=== PATIENT | male | born 1995 | race Caucasian/White ===

== ENCOUNTER 2017-09-25 11:51 | Emergency (ER) | payer MEDICAID ==
[2017-09-25 12:06] VITALS: BP 126/72
--- NOTE | 2017-09-25 12:49 | ER Document Report ---
HPI - HPI Pain Level: 3 Notes: Patient is a 22-year-old male with no significant past medical history who presents to the ED complaining of lymphadenopathy on the left side of his neck 1 week. Patient states that he has not noticed any other swelling anywhere else. Patient states that he did have nasal congestion and discharge for the first couple days which have since resolved. Patient states that he has otherwise felt well and is eating and drinking without any difficulties. He is urinating normally having normal bowel movements. He has not noticed any changes in his weight. He denies any drug allergies. He does not have any cats in the household. Patient states that the lymph nodes are painful to the touch. No other concerns or complaints. Denies any headache, fever, head injury, trouble swallowing/breathing, hoarseness, drooling, ear pain, URI, sore throat, chest pain, palpitations, syncope, cough, shortness of breath, wheeze, dyspnea, abdominal pain, nausea/vomiting/diarrhea, urinary retention, dysuria, hematuria, loss of control of bowel or bladder, muscle paralysis/weakness, or rash. Pt also has had some tingling to the left lateral 5th digit/hand. 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 He also gets occ tingling to the hand itself. - ROS Systems Reviewed and Negative: Yes All other systems reviewed and negative - REPRODUCTIVE Reproductive: DENIES: : Past Medical History - Social History Smoking Status: Never Smoker Family History: Reviewed & Not Pertinent Pulmonary Medical History: Reports: Hx Asthma, Hx Bronchitis Psychiatric Medical History: Reports: Hx Attention Deficit Hyperactivity Disorder - Immunizations Immunizations up to date: Yes Hx Diphtheria, Pertussis, Tetanus Vaccination: Yes Vertical Provider Document - CONSTITUTIONAL Agree With Documented VS: Yes Notes: PHYSICAL EXAMINATION: GENERAL: Well-appearing, well-nourished and in no acute distress. A&Ox4. Answers questions appropriately. Moves comfortably w/o notable distress HEAD: Atraumatic, normocephalic. EYES: Pupils equal round and reactive to light, extraocular movements intact, sclera anicteric, conjunctiva are normal. ENT: EAC clear b/l. TM's intact b/l without erythema, fluid, or perforation. Nares patent and with clear discharge. oropharynx no erythema without exudates. No tonsilar hypertrophy without erythema or exudate. No palatine shift. Uvula midline. No tongue protrusion. No drooling, hoarseness, or airway compromise. Moist mucous membranes. No sinus tenderness. Face: acne noted left side of face NECK: Normal range of motion, supple with 1 submandibular tender, mobile, lymphadenopathy and 2 posterior cerv chain, small, mobile/tender. No rigidity/ meningismus. No other lymphadenopathy noted throughout the body by palpation/ visual. LUNGS: Breath sounds clear to auscultation bilaterally and equal. No wheezes rales or rhonchi. No retractions HEART: Regular rate and rhythm without murmurs, rubs, gallops. ABDOMEN: Soft, nontender, nondistended abdomen. No guarding, no rebound. No masses appreciated. Normal bowel sounds present. No CVA tenderness bilaterally. No hepatosplenomegaly. MS: + tinel/phalen at median nerve and ulnar nerve, reproduced symptoms. No atrophy noted. N/V intact distal otherwise. Strength 5+/5. FROM. No signs of infection. NEUROLOGICAL: Normal speech, normal gait. Normal sensory, motor exams PSYCH: Normal mood, normal affect. SKIN: Warm, Dry, normal turgor, no rashes or lesions noted. - INFECTION CONTROL TRAVEL OUTSIDE OF THE [place] IN LAST 30 DAYS: No - RESPIRATORY O2 Sat by Pulse Oximetry: 99 Course - Re-evaluation Re-evalutation: 09/25/17 14:00 Patient is an afebrile, well-hydrated, 22-year-old male who presents to the ED with lymphadenitis as well as mild cubital/carpal tunnel syndrome of the left upper extremity. Vitals are stable. PE is otherwise unremarkable. CBC and CMP were unremarkable for any acute pathology. Patient had a mildly positive Tinel/Phalen at the wrist and the elbow. I suspect that his lymphadenitis could be secondary to his recent URI versus current acne at this time. Exam did not show any other lymphadenopathy throughout the body to palpation and visualization. Patient is tolerating p.o. without any difficulties. I will send him home with a prescription for Augmentin to take as directed. Low suspicion for any lymphoma, leukemia, severe dehydration, peritonsillar/ pharyngeal abscess, airway compromise, cat scratch, rheumatic disease, sepsis, meningitis, or other systemic emergent condition at this time. Patient to monitor symptoms closely and seek medical attention with any acute changes. I would like him to get evaluated with his PCM in 3-5 days. He may consider consult with orthopedic/neurosurgeon with worsening neurologic symptoms in his left upper extremity. Conservative measures otherwise for symptoms. Return to the ED with any worsening/concerning symptoms otherwise as reviewed discharge. Patient is in agreement. - Vital Signs Vital signs: Temp Pulse Resp BP Pulse Ox 98.3 F 80 14 126/72 H 99 09/25/17 12:05 09/25/17 12:05 09/25/17 12:05 09/25/17 12:05 09/25/17 12:05 - Laboratory Result Diagrams: 09/25/17 12:55 09/25/17 12:55 Discharge - Discharge Clinical Impression: Cubital tunnel syndrome on left, Carpal tunnel syndrome of left wrist, Lymphadenitis, acute Condition: Stable Disposition: HOME, SELF-CARE Instructions: Carpal Tunnel Syndrome ([facility]), Cervical Lymphadenitis ([facility]) Additional Instructions: Rest, Ice, elevation Posture for wrist/arm as reviewed, may consider volar wrist splint from the pharmacy Tylenol/ibuprofen as needed Light stretches daily Strength exercises as able Moist heat and massage may help Monitor symptoms for any acute changes F/u with your PCP in 3-5 days for a recheck Consider consult(s) with Orthopedics/physical therapy/Neurosurgery for ongoing/ worsening symptoms Return to the ED with any worsening symptoms and/or development of fever, headache, sore throat, drooling, hoarseness, trouble swallowing/breathing, neck stiffness/worsening pain, chest pain, palpitations, syncope, shortness of breath , trouble breathing, abdominal pain, n/v/d, muscle weakness/paralysis, numbness/ tingling, swelling, redness, or other worsening symptoms that are concerning to you. Prescriptions: Amox Tr/Potassium Clavulanate [Augmentin 875-125 Tablet] 1 tab PO BID 10 Days # 20 tablet Forms: Elevated Blood Pressure [facility] [[facility] - Follow up in 3-5 days [facility] [Provider Group] - Follow up as needed
[2017-09-25 13:27] LABS: ABSOLUTE BASOPHILS # (AUTO) 0.1 10^3/uL (0.0-0.2); ABSOLUTE EOSINOPHILS # (AUTO) 0.1 10^3/uL (0.0-0.6); ABSOLUTE LYMPHOCYTES (AUTO) 2.1 10^3/uL (0.5-4.7); ABSOLUTE MONOCYTES (AUTO) 0.7 10^3/uL (0.1-1.4); ABSOLUTE NEUT (AUTO) 6.3 10^3/uL (1.7-8.2); BASOPHILS % (AUTO) 0.6 % (0-2); EOSINOPHILS % (AUTO) 1.3 % (0-6); HEMATOCRIT 51.4 % (37.9-51.0); HEMOGLOBIN 17.7 g/dL (13.5-17.0); LYMPHOCYTES % (AUTO) 22.7 % (13-45); MEAN CORPUSCULAR HEMOGLOBIN 28.8 pg (27.0-33.4); MEAN CORPUSCULAR HGB CONC 34.5 g/dL (32.0-36.0); MEAN CORPUSCULAR VOLUME 84 fl (80-97); MONOCYTES % (AUTO) 7.3 % (3-13); PLATELET COUNT 292 10^3/uL (150-450); RED BLOOD COUNT 6.15 10^6/uL (4.35-5.55); RED CELL DISTRIBUTION WIDTH 13.7 % (11.5-14.0); SEGMENTED NEUTROPHILS % (AUTO) 68.1 % (42-78); TOTAL CELLS COUNTED % (AUTO) 100 %; WHITE BLOOD COUNT 9.3 10^3/uL (4.0-10.5)
[2017-09-25 13:42] LABS: ALANINE AMINOTRANSFERASE 27 U/L (21-72); ALBUMIN 5.1 g/dL (3.5-5.0); ALKALINE PHOSPHATASE 55 U/L (38-126); ANION GAP 13 (5-19); ASPARTATE AMINO TRANSFERASE 22 U/L (17-59); BILIRUBIN,DIRECT 0.2 mg/dL (0.0-0.4); BILIRUBIN,TOTAL 0.5 mg/dL (0.2-1.3); BLOOD UREA NITROGEN 10 mg/dL (7-20); CALCIUM 10.3 mg/dL (8.4-10.2); CARBON DIOXIDE 28 mmol/L (22-30); CHLORIDE 101 mmol/L (98-107); GLUCOSE 106 mg/dL (75-110); POTASSIUM 4.8 mmol/L (3.6-5.0); SODIUM 142.1 mmol/L (137-145); TOTAL PROTEIN 7.9 g/dL (6.3-8.2)
== END 2017-09-25 14:19 | disposition home or self-care (01) ==
LOC: ER 11:51
DX: G56.22 Lesion of ulnar nerve, left upper limb (principal); G56.02 Carpal tunnel syndrome, left upper limb; L04.0 Acute lymphadenitis of face, head and neck; L70.9 Acne, unspecified; J45.909 Unspecified asthma, uncomplicated
CPT/HCPCS: 36415; 80053; 85025; 99283

== ENCOUNTER 2020-06-27 22:47 | Emergency (ER) | payer SELFPAY ==
[2020-06-27 23:00] VITALS: BP 134/86
[2020-06-28] MEDS ORDERED: NAPROXEN 250 MG TABLET PO ONE (00:11)
[2020-06-28] MEDS ORDERED: PENICILLIN V POTASSIUM 500 MG TABLET PO ONE (00:11)
[2020-06-28] MEDS ORDERED: HYDROCODONE/ACETAMINOPHEN 5-325 MG TABLET PO ONE (00:11)
--- NOTE | 2020-06-28 00:16 | ER Document Report ---
ED Oral Problem - General Chief Complaint: Toothache Stated Complaint: TOOTH PAIN Time Seen by Provider: 06/28/20 00:06 Notes: CHIEF COMPLAINT: Dental pain today HPI: 24-year-old male with history of chronically poor dentition presenting for dental pain today. Did not take any medicines for his pain. States he has an appointment with a dentist on Friday. Patient denies facial swelling or fever. ROS: See HPI - all other systems were reviewed and are otherwise negative Constitutional: no fever Eyes: no drainage, no blurred vision ENT: no runny nose, no sore throat, positive dental pain Integumentary: no rash Allergy: no hives MEDICATIONS: I agree with the patient medications as charted by the RN. ALLERGIES: I agree with the allergies as charted by the RN. PAST MEDICAL HISTORY/PAST SURGICAL HISTORY: Reviewed and agree as charted by RN. SOCIAL HISTORY: Reviewed and agree as charted by RN. FAMILY HISTORY: No significant familial comorbid conditions directly related to patient complaint EXAM: Reviewed vital signs as charted by RN. CONSTITUTIONAL: Alert and oriented and responds appropriately to questions. Well-appearing; well-nourished HEAD: Normocephalic; atraumatic EYES: PERRL; Conjunctivae clear, sclerae non-icteric ENT: normal nose; no rhinorrhea; moist mucous membranes; pharynx without lesions noted, no uvula edema or deviation, no tonsillar hypertrophy, phonation normal. Multiple areas of dental caries most specifically to the right upper and right lower second molars. No gingival edema no sublingual swelling no trismus no facial swelling. NECK: Supple without meningismus; non-tender; no cervical lymphadenopathy, no masses CARD: symmetric distal pulses RESP: Normal chest excursion without splinting or tachypnea ABD/GI: non-distended BACK: The back appears normal EXT: Normal ROM in all joints; non-tender to palpation; no cyanosis, no effusions, no edema SKIN: Slightly pale color for age and race; warm; dry; good turgor; no acute lesions noted NEURO: Moves all extremities equally; Motor and sensory function intact PSYCH: The patient's mood and manner are moaning with discomfort. Grooming and personal hygiene are appropriate. MDM: 25-year-old male presenting for dental pain today. I did review the patient on the [place] narcotics database without finding recent entry in the last year. He has dental caries to the right upper and lower second molars will place on antibiotics short course of pain medication. Patient's presentation seems somewhat dramatic relative to his visible dentition TRAVEL OUTSIDE OF THE [place] IN LAST 30 DAYS: No - Related Data Allergies/Adverse Reactions: No Known Allergies Allergy (Unverified 10/07/11 15:07) Past Medical History - Social History Smoking Status: Current Every Day Smoker Family History: Reviewed & Not Pertinent Pulmonary Medical History: Reports: Hx Asthma, Hx Bronchitis Renal/ Medical History: Denies: Hx Peritoneal Dialysis Psychiatric Medical History: Reports: Hx Attention Deficit Hyperactivity Disorder - Immunizations Immunizations up to date: Yes Hx Diphtheria, Pertussis, Tetanus Vaccination: Yes Physical Exam - Vital signs Vitals: Temp Pulse Resp BP Pulse Ox 97.4 F 101 H 20 134/86 H 99 06/27/20 22:59 06/27/20 22:59 06/27/20 22:59 06/27/20 22:59 06/27/20 22:59 Course - Vital Signs Vital signs: Temp Pulse Resp BP Pulse Ox 97.4 F 101 H 20 134/86 H 99 06/27/20 22:59 06/27/20 22:59 06/27/20 22:59 06/27/20 22:59 06/27/20 22:59 Discharge - Discharge Clinical Impression: Pain due to dental caries Condition: Stable Disposition: HOME, SELF-CARE Instructions: Oral Narcotic Medication ([facility]), Penicillin V K ([facility]), Toothache ([facility]) Additional Instructions: 1. Take the medications as prescribed, if you were written antibiotics make sure that you finish them. 2. You need to follow up with a dentist for definitive evaluation and care of your dental problems 3. return to the ED for any facial swelling, fever > 101, difficulty swallowing or opening the mouth. 4. You may attempt to follow up with the [facility] for further care as well as through the dental list provided. 5. you may want to consider a dental discount plan such as [email or web address] to help with costs of dental care as you do not have dental insurance Prescriptions: Naproxen 500 mg PO BID PRN #14 tablet PRN Reason: Hydrocodone/Acetaminophen [Aurora 5-325 mg Tablet] 1 tab PO Q4 PRN #15 tablet PRN Reason: Penicillin V Potassium [Penicillin Vk 500 mg Tablet] 500 mg PO QID #28 tablet
== END 2020-06-28 00:25 | disposition home or self-care (01) ==
LOC: ER 22:47
DX: K02.9 Dental caries, unspecified (principal); K08.89 Other specified disorders of teeth and supporting structures; F17.200 Nicotine dependence, unspecified, uncomplicated; J45.909 Unspecified asthma, uncomplicated
CPT/HCPCS: 99283

== ENCOUNTER 2020-09-02 21:21 | Emergency (ER) | payer SELFPAY ==
[2020-09-02] MEDS ORDERED: CLINDAMYCIN 300 MG/D5W RTU 300 MG/50 ML RTUPB IV ONE (21:36)
[2020-09-02] MEDS ORDERED: NORMAL SALINE 1000 ML 1,000 ML IV ONE (21:40)
[2020-09-02] MEDS ORDERED: DIPH/PERTUSS(ACELL)/TETANUS VAC/PF 0.5 ML SYR (>=10YO) IM ONE (21:43)
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
[2020-09-02 22:23] LABS: ABSOLUTE BASOPHILS # (AUTO) 0.1 10^3/uL (0.0-0.2); ABSOLUTE EOSINOPHILS # (AUTO) 0.1 10^3/uL (0.0-0.6); ABSOLUTE LYMPHOCYTES (AUTO) 2.7 10^3/uL (0.5-4.7); ABSOLUTE MONOCYTES (AUTO) 1.1 10^3/uL (0.1-1.4); ABSOLUTE NEUT (AUTO) 6.7 10^3/uL (1.7-8.2); BASOPHILS % (AUTO) 0.7 % (0-2); EOSINOPHILS % (AUTO) 1.1 % (0-6); HEMOGLOBIN 14.7 g/dL (13.5-17.0); LYMPHOCYTES % (AUTO) 25.1 % (13-45); MEAN CORPUSCULAR HEMOGLOBIN 27.6 pg (27.0-33.4); MEAN CORPUSCULAR HGB CONC 34.2 g/dL (32.0-36.0); MEAN CORPUSCULAR VOLUME 81 fl (80-97); MONOCYTES % (AUTO) 10.2 % (3-13); PLATELET COUNT 327 10^3/uL (150-450); RED BLOOD COUNT 5.33 10^6/uL (4.35-5.55); RED CELL DISTRIBUTION WIDTH 14.6 % (11.5-14.0); SEGMENTED NEUTROPHILS % (AUTO) 62.9 % (42-78); TOTAL CELLS COUNTED % (AUTO) 100 %; WHITE BLOOD COUNT 10.6 10^3/uL (4.0-10.5)
--- NOTE | 2020-09-02 22:41 | RADIOLOGY REPORT (SQ) ---
Left ankle radiographs: 09/02/2020 9:39 PM [employer] HISTORY: 25-year-old patient with left ankle pain, stepped on infected nail. COMPARISON: None available TECHNIQUE: AP, lateral, mortise views of the left ankle were obtained. FINDINGS: There are no findings to suggest an acute fracture or subluxation within the left ankle. No abnormal soft tissue swelling is seen. No abnormal calcification, periarticular osteopenia, or gross erosions are seen. The joint spaces are preserved. No gross radiopaque foreign body is seen. IMPRESSION: There are no findings to suggest an acute fracture or subluxation within the left ankle.
[2020-09-02 22:46] LABS: ALBUMIN 4.3 g/dL (3.5-5.0); ALKALINE PHOSPHATASE 54 U/L (38-126); ANION GAP 10 (5-19); ASPARTATE AMINO TRANSFERASE 21 U/L (17-59); BILIRUBIN,DIRECT 0.2 mg/dL (0.0-0.4); BILIRUBIN,TOTAL 0.4 mg/dL (0.2-1.3); BLOOD UREA NITROGEN 9 mg/dL (7-20); CALCIUM 9.2 mg/dL (8.4-10.2); CARBON DIOXIDE 31 mmol/L (22-30); CHLORIDE 98 mmol/L (98-107); GLUCOSE 85 mg/dL (75-110); POTASSIUM 3.9 mmol/L (3.6-5.0); TOTAL PROTEIN 7.5 g/dL (6.3-8.2)
--- NOTE | 2020-09-02 22:49 | RADIOLOGY REPORT (SQ) ---
EXAM DESCRIPTION: FOOT LEFT, THREE VIEWS CLINICAL HISTORY: 25 years Male, stepped on nail; infected ankle; eval osteomylitis COMPARISON: None. FINDINGS: Bone mineralization is normal. Alignment of the foot is anatomic. No air is identified in the soft tissues. No radiopaque foreign body. No erosions or periostitis. No fracture. IMPRESSION: No acute process. No evidence of osteomyelitis. No radiopaque foreign body.
[2020-09-02] MEDS ORDERED: CLINDAMYCIN 600 MG/D5W RTU 600 MG/50 ML RTUPB IV ONE (23:07)
[2020-09-02] MEDS ORDERED: MUPIROCIN 2% OINTMENT 22 GM TP ONE (23:09)
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
[2020-09-02] MEDS ORDERED: HYDROCODONE/ACETAMINOPHEN 5-325 MG TABLET PO ONE (23:28)
[2020-09-03 00:46] VITALS: BP 116/68
--- NOTE | 2020-09-03 02:04 | ER Document Report ---
Doctor's Note Notes: 09/03/20 02:00 I was asked to see the patient by the CELSO. Patient states that he developed erythema to his left medial ankle.. It has spread to the top of the medial tibia. He denies any fevers or chills. He does use IV drugs. No nausea or vomiting. 09/03/20 02:02 On exam, patient is afebrile. His vitals are within normal limits. There is erythema and warmth through the left medial ankle to the medial tibia. There is a bandage placed to the scab on the medial ankle by the CELSO. There is no pain or erythema to the bottom of the foot. His lab work is unremarkable. Lactic acid is normal. Patient was given IV antibiotics. He was discharged home on clindamycin. I gave patient strict return precautions. Told he must return if symptoms are worsening. He must return for any fevers, chills, nausea, vomiting. Patient verbalized understanding.
== END 2020-09-03 01:19 | disposition home or self-care (01) ==
LOC: ER 21:21
DX: L03.116 Cellulitis of left lower limb (principal); M25.572 Pain in left ankle and joints of left foot; F17.210 Nicotine dependence, cigarettes, uncomplicated; F15.10 Other stimulant abuse, uncomplicated; F12.10 Cannabis abuse, uncomplicated; J45.909 Unspecified asthma, uncomplicated; Z23 Encounter for immunization
CPT/HCPCS: 99284; 90471; 96365; 36415; 87040; 87070; 87205; 83605; 85025; 87075; 87077; 80053; 73610; 73630; 90715; J7030; J3490; 87186